=== PATIENT | male | born 1950 | race African-American/Black ===

== ENCOUNTER 2016-10-06 07:47 | Day surgery (SDC) | payer OTHER ==
[~2016-10-06] VITALS: Ht 182.9 cm; Wt 81.1 kg
[2016-10-06] MEDS ORDERED: METOPROLOL (08:19)
[2016-10-06] MEDS ORDERED: LISINOPRIL (08:19)
[2016-10-06] MEDS ORDERED: METFORMIN (08:19)
[2016-10-06] MEDS ORDERED: GLIPIZIDE (08:19)
[2016-10-06] MEDS ORDERED: SIMVASTATIN (08:19)
[2016-10-06 08:22] VITALS: Ht 182.9 cm; Wt 81.1 kg
[2016-10-06 09:20] VITALS: BP 158/82; PULSE 61; RESP 18
[2016-10-06] MEDS ORDERED: FENTAnyl 50 MCG/ML VIAL ONE (09:48)
[2016-10-06] MEDS ORDERED: MIDAZOLAM 1 MG/ML 2 ML INJ ONE ×2 (09:48)
[2016-10-06 10:13] VITALS: BP 129/67; PULSE 69; RESP 20
--- NOTE | 2016-10-07 05:40 | GILP ---
DATE OF PROCEDURE: 10/06/2016 PROCEDURE: Colonoscopy. PREOPERATIVE DIAGNOSIS: History of colon polyps, rule out colorectal polyp recurrence. POSTOPERATIVE DIAGNOSES: Minimal internal hemorrhoids and minimal external hemorrhoids. PLAN: Repeat colonoscopy in 3 years. DESCRIPTION OF PROCEDURE: After informed written consent was obtained, the patient was asked to lie on the left lateral side, 4 mg Versed and 50 mcg of fentanyl was given as intravenous anesthesia. When the patient became somnolent, the Olympus video colonoscope was introduced into the rectum and scope was advanced all the way to the cecum. Entire colon appeared normal, no polyps or any other m ucosal abnormality detected. Endoscope at this time was withdrawn and the procedure was terminated. On the way out, minimal internal hemorrhoids and minimal external hemorrhoids were noted. PLAN: Recommend colonoscopy in 3 years. Dictated By: JULIA MIXON/DARCY Conf#: [id number] DID#: [id number]
== END 2016-10-06 13:45 | disposition home or self-care (01) ==
LOC: GIL 07:47
PROVIDERS: ATTEND Internal Medicine Gastroenterology
DX: Z86.010 Personal history of colon polyps (principal); K64.8 Other hemorrhoids; K64.4 Residual hemorrhoidal skin tags
CPT/HCPCS: 45378; J2250; J3010; Z7610